=== PATIENT | male | born 1990 | race Two or more races ===

== ENCOUNTER 2017-12-04 01:38 | Emergency (ER) | payer SELFPAY ==
[2017-12-04 01:51] VITALS: TEMP 97.7; O2SAT 98
--- NOTE | 2017-12-04 02:13 | C.PDOC ---
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 The patient admits to drinking earlier today. He denies any SI or HI. The patient offers no medical complaints at this time. Time Seen by Provider: 12/04/17 01:53 Chief Complaint (Nursing): Substance Abuse History Per: Patient History/Exam Limitations: intoxication Modifying Factor(s): Alcohol Additional History Per: EMS Past Medical History Reviewed: Historical Data, Nursing Documentation, Vital Signs Vital Signs: Last Vital Signs Temp 97.7 F 12/04/17 01:50 Pulse 97 H 12/04/17 01:50 Resp 18 12/04/17 01:50 BP 112/70 12/04/17 01:50 Pulse Ox 98 12/04/17 02:15 - Medical History PMH: No Chronic Diseases Surgical History: No Surg Hx Family History: States: Unknown Family Hx - Social History Hx Alcohol Use: Yes Hx Substance Use: Yes - Immunization History Hx Tetanus Toxoid Vaccination: No Hx Influenza Vaccination: No Hx Pneumococcal Vaccination: No Review Of Systems Except As Marked, All Systems Reviewed And Found Negative. Constitutional: Negative for: Fever, Chills Neurological: Negative for: Headache Psych: Negative for: Depression, Suicidal ideation Physical Exam - Physical Exam Appears: Well, Non-toxic, No Acute Distress Skin: Normal Color, Warm, Dry Head: Atraumatic, Normacephalic Eye(s): bilateral: Normal Inspection, EOMI Ear(s): Bilateral: Normal Oral Mucosa: Moist Neck: Supple Chest: Symmetrical Cardiovascular: Rhythm Regular, No Murmur Respiratory: Normal Breath Sounds, No Rales, No Rhonchi, No Wheezing Gastrointestinal/Abdominal: Soft, No Tenderness, No Distention Back: Normal Inspection Extremity: Normal ROM Neurological/Psych: Normal Speech, Other (No gross focal deficits) ED Course And Treatment O2 Sat by Pulse Oximetry: 98 (RA) Pulse Ox Interpretation: Normal Disposition - Disposition Referrals: [facility] [Outside] [facility] [Outside] Disposition: HOME/ ROUTINE Disposition Time: 03:00 Condition: IMPROVED Additional Instructions: SAÚL PRESLEY, thank you for letting us take care of you today. Your provider was Bari Garcia DO and you were treated for SUBSTANCE ABUSE. The emergency medical care you received today was directed at your acute symptoms. If you were prescribed any medication, please fill it and take as directed. It may take several days for your symptoms to resolve. Return to the Emergency Department if your symptoms worsen, do not improve, or if you have any other problems. Please contact your doctor or call one of the physicians/clinics you have been referred to that are listed on the Patient Visit Information form that is included in your discharge packet. Bring any paperwork you were given at discharge with you along with any medications you are taking to your follow up visit. Our treatment cannot replace ongoing medical care by a primary care provider outside of the emergency department. Thank you for allowing the [facility] team to be part of your care today. Do not drink too much alcohol at one time. Follow up with your doctor or the clinic for outpatient care. Instructions: Alcohol Use - When Is Drinking a Problem? Forms: [employer] ([place]) - Clinical Impression Clinical Impression: Alcohol abuse - PA / HIDE SELECTOR / Resident Statement MD/DO has reviewed & agrees with the documentation as recorded. - Scribe Statement The provider has reviewed the documentation as recorded by the Scribe (Vijaya Bucio) Provider Attestation: All medical record entries made by the Scribe were at my direction and personally dictated by me. I have reviewed the chart and agree that the record accurately reflects my personal performance of the history, physical exam, medical decision making, and the department course for this patient. I have also personally directed, reviewed, and agree with the discharge instructions and disposition.
[2017-12-04 05:49] VITALS: BP 116/82; PULSE 81; RESP 16
== END 2017-12-04 05:49 | disposition home or self-care (01) ==
LOC: C.ER 01:38
DX: F10.10 Alcohol abuse, uncomplicated (principal); Y90.9 Presence of alcohol in blood, level not specified